=== PATIENT | male | born 1950 | race Two or more races ===

== ENCOUNTER 2018-06-05 11:40 | Inpatient (IN) | payer MEDICARE, MEDICAID ==
[~2018-06-05] VITALS: Ht 180.3 cm; Wt 66.2 kg
[~2018-06-05 11:40] MED LIST: ASPI-1264 PO; KRIL500C PO; MOT200T PO; NITR0.4T48 SL; PRAV40TA65 PO
[2018-06-05] MEDS ORDERED: dexamethasone sod phosphate 10mg/ml inj IV STA (12:17)
[2018-06-05] MEDS ORDERED: diphenhydrAMINE 50 mg/ml inj IV ONE (12:20)
[2018-06-05] MEDS ORDERED: iohexol 350MG/ML 100ml bottle IV ONE (12:56)
[2018-06-05] MEDS ORDERED: iohexol 350 MG/ML 50ML vial IV ONE (12:56)
[2018-06-05 13:02] LABS: ALANINE AMINOTRANSFERASE 30 U/L (12-78); ALBUMIN/GLOBULIN RATIO 0.7 (1.1-1.5); ALKALINE PHOSPHATASE 75 IU/L (46-116); ANION GAP 11 (8-16); ASPARTATE AMINO TRANSFERASE 28 U/L (10-37); BILIRUBIN,TOTAL 0.5 MG/DL (0.1-1.0); BLOOD UREA NITROGEN 21 MG/DL (7-18); BUN/CREATININE RATIO 20.4 (5.4-32.0); CALCIUM 8.4 MG/DL (8.5-10.1); CHLORIDE 102 MMOL/L (99-107); CREATININE 1.03 MG/DL (0.60-1.10); GLUCOSE 83 MG/DL (70-104); POTASSIUM 3.8 MMOL/L (3.5-5.1); SODIUM 139 MMOL/L (135-145); TOTAL PROTEIN 7.2 G/DL (6.4-8.2); eGFR 72 ML/MIN
[2018-06-05] MEDS ORDERED: morphine 4 MG/ML inj SYRINge IV ONE (13:05)
[2018-06-05 13:06] LABS: BASOPHILS % (AUTO) 0.5 % (0-1); EOSINOPHILS # (AUTO) 0.1 X10'3 (0-0.9); EOSINOPHILS % (AUTO) 2.3 % (0-6); HEMATOCRIT 40.2 % (42.0-52.0); HEMOGLOBIN 13.6 g/dl (14.0-17.9); LYMPHOCYTES # (AUTO) 0.9 X10'3 (1.1-4.8); LYMPHOCYTES % (AUTO) 21.4 % (21-51); MEAN CORPUSCULAR HEMOGLOBIN 29.3 PG (27.0-31.0); MEAN CORPUSCULAR HGB CONC 33.9 % (33.0-36.5); MEAN CORPUSCULAR VOLUME 86.6 FL (78-98); MEAN PLATELET VOLUME 7.6 FL (7.4-10.4); MONOCYTES # (AUTO) 0.3 X10'3 (0-0.9); MONOCYTES % (AUTO) 7.8 % (2-12); NEUTROPHILS # (AUTO) 2.8 X10'3 (1.8-7.7); PLATELET COUNT 200 X10'3 (140-440); RED BLOOD COUNT 4.64 X10'6 (4.70-6.10); RED CELL DISTRIBUTION WIDTH 13.5 % (11.5-14.5); WHITE BLOOD COUNT 4.1 X10'3 (4.5-11.0)
[2018-06-05] MEDS ORDERED: heparin 10,000 units/1 ML INJ IV ONE (13:10)
[2018-06-05] MEDS ORDERED: heparin 25,000 UNIT/250ml bag 250 ML IV SCH (13:10)
[2018-06-05] MEDS ORDERED: heparin 10,000 units/1 ML INJ IV PRN (13:10)
[2018-06-05 13:12] LABS: INR 3.6 INR; PARTIAL THROMBOPLASTIN TIME 46 SECONDS (22-32); PROTHROMBIN TIME 33.9 SECONDS (9.0-12.0)
[2018-06-05 14:07] LABS: CLARITY,URINE CLEAR (Clear); COLOR,URINE STRAW (Yellow); GLUCOSE, URINE NEGATIVE (Neg); KETONES,URINE NEGATIVE (Neg); LEUKOCYTE ESTERASE ,URINE NEGATIVE (Neg); NITRITES, URINE NEGATIVE (Neg); OCCULT BLOOD,URINE SMALL (Neg); PH,URINE 7.5 (4.8-8.0); PROTEIN,URINE NEGATIVE (Neg); UROBILINOGEN,URINE 0.2 E.U/dL (0.2-1.0)
[2018-06-05 14:13] LABS: UA COLLECTION TYPE CLN CATCH MIDSTREAM
[2018-06-05 14:14] LABS: MUCUS STRANDS NONE SEEN /LPF (Neg); SQUAMOUS EPITHELIAL CELL,UR FEW /LPF (FEW)
[2018-06-05 14:15] LABS: BACTERIA,URINE NONE SEEN /HPF (Neg); RBC,URINE 20-50 /HPF (0-2); WBC,URINE 0-4 /HPF (0-4)
--- NOTE | 2018-06-05 14:23 | NUR ---
heparin drip stopped per dr. murphy. inr 3.6, ptt 46
--- NOTE | 2018-06-05 14:24 | NUR ---
MONICA PHONE [phone]
[2018-06-05] MEDS ORDERED: COU5T PO ×2 (14:45→16:41)
[2018-06-05] MEDS ORDERED: ASPI-1265 PO (14:45)
[2018-06-05] MEDS ORDERED: COU2.5T PO ×2 (14:45→16:41)
[2018-06-05] MEDS ORDERED: IBUP-1984 PO (14:45)
[2018-06-05] MEDS ORDERED: morphine 4 MG/ML inj SYRINge IV PRN (15:55)
[2018-06-05] MEDS ORDERED: ipratropium/albuterol 3ml nebule NEB PRN (15:55)
[2018-06-05] MEDS ORDERED: ondansetron/PF 4mg/2ml inj IV PRN (15:55)
[2018-06-05] MEDS ORDERED: acetaminophen 325mg tablet PO PRN (15:55)
[2018-06-05] MEDS ORDERED: mag hydrox/Alum hydrox/simeth 30ml oral suspension PO PRN (15:55)
[2018-06-05] MEDS ORDERED: docusate sod 100mg capsule PO PRN (15:55)
[2018-06-05] MEDS: heparin, porcine 5000 units/ml vial SQ SCH (16:00)
[2018-06-05] MEDS ORDERED: nitroGLYCERIN 0.4mg SUBLingual tab SL PRN (16:25)
[2018-06-05] MEDS ORDERED: metoprolol tartrate 1mg/ml inj IV PRN (16:25)
[2018-06-05] MEDS ORDERED: regadenoson 0.4mg/5ml syringe IV PRN (16:25)
[2018-06-05] MEDS ORDERED: aminophylline 250mg/10ml inj. IV PRN (16:25)
[2018-06-05] MEDS ORDERED: KRIL1CAP PO (16:31)
[2018-06-05] MEDS ORDERED: FURO-150 PO (16:36)
[2018-06-05] MEDS ORDERED: HYDR-3965 PO (16:36)
[2018-06-05] MEDS ORDERED: CHOL10002 PO (16:36)
[2018-06-05] MEDS ORDERED: POTA8TAB8 PO (16:37)
[2018-06-05] MEDS: normal saline 1000ml 1,000 ML IV SCH (17:02)
--- NOTE | 2018-06-05 17:35 | NUR ---
Patient in room PCU 3023. I have received report from Casandra GALLAGHER and had the opportunity to ask questions and assume patient care.
--- NOTE | 2018-06-05 18:15 | NUR ---
Problems reprioritized. Patient report given, questions answered & plan of care reviewed with Halley GALLAGHER.
[2018-06-05 19:00] VITALS: BP 153/83
[2018-06-05] MEDS: morphine 4 MG/ML inj SYRINge IV PRN (22:50)
[2018-06-05 23:00] VITALS: BP 124/69
[2018-06-06] VITALS (14 sets, daily range): BP systolic 126–155; BP diastolic 67–88
[2018-06-06] MEDS: heparin, porcine 5000 units/ml vial SQ SCH ×4 (00:05→23:30)
[2018-06-06] MEDS: normal saline 1000ml 1,000 ML IV SCH ×3 (02:36→21:52)
[2018-06-06 04:50] LABS: BASOPHILS % (AUTO) 0.5 % (0-1); EOSINOPHILS % (AUTO) 0.8 % (0-6); HEMATOCRIT 38.5 % (42.0-52.0); HEMOGLOBIN 12.9 g/dl (14.0-17.9); LYMPHOCYTES # (AUTO) 0.5 X10'3 (1.1-4.8); LYMPHOCYTES % (AUTO) 8.5 % (21-51); MEAN CORPUSCULAR HEMOGLOBIN 29.3 PG (27.0-31.0); MEAN CORPUSCULAR HGB CONC 33.6 % (33.0-36.5); MEAN CORPUSCULAR VOLUME 87.3 FL (78-98); MEAN PLATELET VOLUME 7.4 FL (7.4-10.4); MONOCYTES # (AUTO) 0.3 X10'3 (0-0.9); MONOCYTES % (AUTO) 4.5 % (2-12); NEUTROPHILS # (AUTO) 4.9 X10'3 (1.8-7.7); NEUTROPHILS % (AUTO) 85.7 % (42-75); PLATELET COUNT 206 X10'3 (140-440); RED BLOOD COUNT 4.42 X10'6 (4.70-6.10); RED CELL DISTRIBUTION WIDTH 13.7 % (11.5-14.5); WHITE BLOOD COUNT 5.7 X10'3 (4.5-11.0)
[2018-06-06 05:07] LABS: ALANINE AMINOTRANSFERASE 31 U/L (12-78); ALBUMIN 2.7 G/DL (3.4-5.0); ALBUMIN/GLOBULIN RATIO 0.7 (1.1-1.5); ALKALINE PHOSPHATASE 67 IU/L (46-116); ANION GAP 9 (8-16); ASPARTATE AMINO TRANSFERASE 28 U/L (10-37); BILIRUBIN,TOTAL 0.4 MG/DL (0.1-1.0); BLOOD UREA NITROGEN 25 MG/DL (7-18); BUN/CREATININE RATIO 24.5 (5.4-32.0); CALCIUM 8.3 MG/DL (8.5-10.1); CHLORIDE 106 MMOL/L (99-107); CHOL/HDL RATIO 4.2 (0.00-4.99); CHOLESTEROL 174 MG/DL (0-200); CREATININE 1.02 MG/DL (0.60-1.10); GLUCOSE 126 MG/DL (70-104); HDL CHOLESTEROL 41 MG/DL (35-60); LDL CHOLESTEROL 124 MG/DL (50-100); POTASSIUM 4.1 MMOL/L (3.5-5.1); SODIUM 139 MMOL/L (135-145); TOTAL CARBON DIOXIDE 24.5 MMOL/L (24-32); TOTAL PROTEIN 6.6 G/DL (6.4-8.2); TRIGLYCERIDES 65 MG/DL (20-135); eGFR 73 ML/MIN
--- NOTE | 2018-06-06 06:13 | NUR ---
Problems reprioritized. Patient report given, questions answered & plan of care reviewed with ELISE GALLAGHER.
--- NOTE | 2018-06-06 06:13 | NUR ---
Patient in room PCU 3023. I have received report from Halley GALLAGHER and had the opportunity to ask questions and assume patient care.
--- NOTE | 2018-06-06 06:16 | NUR ---
[place] Medication Administration: For this medication-pass time frame, all medication were reviewed, dispensed, administered and documented per hospital policy by Sophia GALLAGHER.
--- NOTE | 2018-06-06 06:16 | NUR ---
[place] documentation: I have reviewed and agree with all interventions, assessments performed and documented by Sophia GALLAGHER.
[2018-06-06] MEDS ORDERED: regadenoson 0.4mg/5ml syringe IV ONE (10:28)
[2018-06-06] MEDS ORDERED: aminophylline inj. 10 ML IV ONE (10:28)
--- NOTE | 2018-06-06 12:43 | NUR ---
Paged Dr. Cornelius PAGER ID: [phone] MESSAGE: Joselito Mccullough RN [phone] [id number] Param Gonzalez: Harley completed but no results from scan yet. Pt currently NPO but has active Heart Healthy Diet. Is he safe to feed or wait for results? Thank you.
--- NOTE | 2018-06-06 19:06 | NUR ---
Patient in room PCU 3023. I have received report from Yan GALLAGHER and had the opportunity to ask questions and assume patient care. Pt resting comfortable, on phone speaking to .
[2018-06-06] MEDS: morphine 4 MG/ML inj SYRINge IV PRN (20:10)
[2018-06-07] MEDS: morphine 4 MG/ML inj SYRINge IV PRN ×3 (01:01→20:55)
[2018-06-07] MEDS: normal saline 1000ml 1,000 ML IV SCH ×3 (01:03→23:49)
[2018-06-07 02:00] VITALS: BP 138/76
[2018-06-07 04:49] LABS: BASOPHILS % (AUTO) 0.6 % (0-1); EOSINOPHILS # (AUTO) 0.1 X10'3 (0-0.9); EOSINOPHILS % (AUTO) 1.2 % (0-6); HEMATOCRIT 37.3 % (42.0-52.0); HEMOGLOBIN 12.8 g/dl (14.0-17.9); LYMPHOCYTES # (AUTO) 1.5 X10'3 (1.1-4.8); LYMPHOCYTES % (AUTO) 30.4 % (21-51); MEAN CORPUSCULAR HEMOGLOBIN 29.6 PG (27.0-31.0); MEAN CORPUSCULAR HGB CONC 34.1 % (33.0-36.5); MEAN CORPUSCULAR VOLUME 86.7 FL (78-98); MEAN PLATELET VOLUME 7.5 FL (7.4-10.4); MONOCYTES # (AUTO) 0.3 X10'3 (0-0.9); MONOCYTES % (AUTO) 6.8 % (2-12); PLATELET COUNT 175 X10'3 (140-440); RED CELL DISTRIBUTION WIDTH 13.9 % (11.5-14.5)
[2018-06-07 05:06] LABS: ALANINE AMINOTRANSFERASE 31 U/L (12-78); ALBUMIN 2.6 G/DL (3.4-5.0); ALBUMIN/GLOBULIN RATIO 0.7 (1.1-1.5); ALKALINE PHOSPHATASE 60 IU/L (46-116); ANION GAP 7 (8-16); ASPARTATE AMINO TRANSFERASE 29 U/L (10-37); BILIRUBIN,TOTAL 0.5 MG/DL (0.1-1.0); BLOOD UREA NITROGEN 18 MG/DL (7-18); BUN/CREATININE RATIO 16.7 (5.4-32.0); CALCIUM 8.2 MG/DL (8.5-10.1); CHLORIDE 106 MMOL/L (99-107); CREATININE 1.08 MG/DL (0.60-1.10); GLUCOSE 82 MG/DL (70-104); POTASSIUM 3.9 MMOL/L (3.5-5.1); SODIUM 142 MMOL/L (135-145); TOTAL CARBON DIOXIDE 28.7 MMOL/L (24-32); TOTAL PROTEIN 6.2 G/DL (6.4-8.2); eGFR 68 ML/MIN
[2018-06-07 06:00] VITALS: BP 113/65
--- NOTE | 2018-06-07 06:10 | NUR ---
Patient in room PCU 3023. I have received report from AILEEN Radford and had the opportunity to ask questions and assume patient care.
--- NOTE | 2018-06-07 06:12 | NUR ---
Problems reprioritized. Patient report given, questions answered & plan of care reviewed with Azucena GALLAGHER.
[2018-06-07] MEDS: heparin, porcine 5000 units/ml vial SQ SCH ×3 (07:25→23:47)
[2018-06-07 11:00] VITALS: BP 113/61
--- NOTE | 2018-06-07 14:39 | NUR ---
Harley results faxed to patient's olive packer, Dr. Penny in [place], [place] at [facility].
[2018-06-07 15:00] VITALS: BP 106/66
--- NOTE | 2018-06-07 15:23 | NUR ---
Harley results confirmed receipt at Dr Penny's office
[2018-06-07 18:00] VITALS: BP 139/66
--- NOTE | 2018-06-07 18:40 | NUR ---
Patient in room PCU 3023. I have received report from Azucena GALLAGHER and had the opportunity to ask questions and assume patient care.
--- NOTE | 2018-06-07 18:43 | NUR ---
Problems reprioritized. Patient report given, questions answered & plan of care reviewed with AILEEN Car.
[2018-06-07 23:00] VITALS: BP 143/74
[2018-06-08 03:09] VITALS: BP 135/68
[2018-06-08 05:25] LABS: BASOPHILS # (AUTO) 0.1 X10'3 (0-0.2); BASOPHILS % (AUTO) 1.3 % (0-1); EOSINOPHILS # (AUTO) 0.1 X10'3 (0-0.9); EOSINOPHILS % (AUTO) 1.5 % (0-6); HEMATOCRIT 42.5 % (42.0-52.0); HEMOGLOBIN 14.3 g/dl (14.0-17.9); LYMPHOCYTES % (AUTO) 19.1 % (21-51); MEAN CORPUSCULAR HEMOGLOBIN 29.3 PG (27.0-31.0); MEAN CORPUSCULAR HGB CONC 33.5 % (33.0-36.5); MEAN CORPUSCULAR VOLUME 87.4 FL (78-98); MEAN PLATELET VOLUME 7.6 FL (7.4-10.4); MONOCYTES # (AUTO) 0.5 X10'3 (0-0.9); MONOCYTES % (AUTO) 8.9 % (2-12); NEUTROPHILS # (AUTO) 3.5 X10'3 (1.8-7.7); NEUTROPHILS % (AUTO) 69.2 % (42-75); PLATELET COUNT 170 X10'3 (140-440); RED BLOOD COUNT 4.86 X10'6 (4.70-6.10); WHITE BLOOD COUNT 5.1 X10'3 (4.5-11.0)
[2018-06-08 05:33] LABS: ALANINE AMINOTRANSFERASE 29 U/L (12-78); ALBUMIN 2.8 G/DL (3.4-5.0); ALBUMIN/GLOBULIN RATIO 0.7 (1.1-1.5); ALKALINE PHOSPHATASE 68 IU/L (46-116); ANION GAP 10 (8-16); ASPARTATE AMINO TRANSFERASE 25 U/L (10-37); BILIRUBIN,TOTAL 0.5 MG/DL (0.1-1.0); BLOOD UREA NITROGEN 17 MG/DL (7-18); BUN/CREATININE RATIO 17.9 (5.4-32.0); CALCIUM 8.4 MG/DL (8.5-10.1); CHLORIDE 105 MMOL/L (99-107); CREATININE 0.95 MG/DL (0.60-1.10); GLUCOSE 89 MG/DL (70-104); SODIUM 140 MMOL/L (135-145); TOTAL CARBON DIOXIDE 25.2 MMOL/L (24-32); TOTAL PROTEIN 6.8 G/DL (6.4-8.2); eGFR 79 ML/MIN
--- NOTE | 2018-06-08 06:32 | NUR ---
Problems reprioritized. Patient report given, questions answered & plan of care reviewed with Nani GALLAGHER.
[2018-06-08] MEDS: heparin, porcine 5000 units/ml vial SQ SCH (09:14)
--- NOTE | 2018-06-08 10:52 | NUR ---
patient leaving AMA, at the bedside and she is taking him to [facility]. paperwork signed and charge nurse aware.
--- NOTE | 2018-06-08 11:21 | NUR ---
patient discharged against medical advice, taking him directly to [place] to be seen by vascual team Addendum: 06/08/18 at 1123 by Nani Dent RN by vascular team in [facility], release of information signed to forward current records and AMA form signed
== END 2018-06-08 11:00 | disposition left against medical advice (07) | DRG 315 ==
LOC: ER 11:40 → ED HOLD 15:52 → PCU 3S 17:50
PROVIDERS: ADMIT Family Medicine; ATTEND Internal Medicine
PROC: B42H1ZZ Computerized Tomography (CT Scan) of Bilateral Lower Extremity Arteries using Low Osmolar Contrast (ICD-10-PCS; principal; 2018-06-05)
PROC: 4A02XM4 Measurement of Cardiac Total Activity, External Approach (ICD-10-PCS; 2018-06-06)
PROC: 3E033HZ Introduction of Radioactive Substance into Peripheral Vein, Percutaneous Approach (ICD-10-PCS; 2018-06-06)
DX: T82.898A Other specified complication of vascular prosthetic devices, implants and grafts, initial encounter (principal); E44.1 Mild protein-calorie malnutrition; I73.9 Peripheral vascular disease, unspecified; F03.90 Unspecified dementia, unspecified severity, without behavioral disturbance, psychotic disturbance, mood disturbance, and anxiety; F12.90 Cannabis use, unspecified, uncomplicated; I25.10 Atherosclerotic heart disease of native coronary artery without angina pectoris; L97.519 Non-pressure chronic ulcer of other part of right foot with unspecified severity; Y83.2 Surgical operation with anastomosis, bypass or graft as the cause of abnormal reaction of the patient, or of later complication, without mention of misadventure at the time of the procedure; Z53.21 Procedure and treatment not carried out due to patient leaving prior to being seen by health care provider; M19.90 Unspecified osteoarthritis, unspecified site; Z95.1 Presence of aortocoronary bypass graft; I25.2 Old myocardial infarction; Z79.82 Long term (current) use of aspirin; Z79.01 Long term (current) use of anticoagulants; Z91.041 Radiographic dye allergy status; Z87.891 Personal history of nicotine dependence; Y92.89 Other specified places as the place of occurrence of the external cause; Z68.20 Body mass index [BMI] 20.0-20.9, adult
CPT/HCPCS: 36415; 73706; 78452; 80053; 80061; 81001; 85025; 85610; 85730; 86885; 86900; 86901; 87070; 93005; 93017; 93306; 93931; 93971; 94760; 96365; 96375; 96376; 99285; A9500; G0378; J0280; J1100; J1200; J1644; J2270; J7030; Q9967